=== PATIENT | male | born 1995 | race African-American/Black ===

== ENCOUNTER 2016-11-23 13:35 | Emergency (ER) | payer OTHER ==
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
== END 2016-11-23 16:36 | disposition home or self-care (01) ==
LOC: M ED 13:35
DX: S16.1XXA Strain of muscle, fascia and tendon at neck level, initial encounter (principal); V43.52XA Car driver injured in collision with other type car in traffic accident, initial encounter; Y92.410 Unspecified street and highway as the place of occurrence of the external cause; Y93.9 Activity, unspecified; Y99.9 Unspecified external cause status